=== PATIENT | female | born 2000 | race Caucasian/White ===

== ENCOUNTER 2024-10-03 08:39 | Emergency (ER) | payer MEDICAID ==
[~2024-10-03] VITALS: Ht 160 cm; Wt 46.8 kg
[2024-10-03 09:09] LABS: BASOPHILS % (AUTO) 0.1 % (0.0-2.0); EOSINOPHILS % (AUTO) 1.8 % (1.0-6.0); HEMATOCRIT 40.8 % (36-46); HEMOGLOBIN 13.7 g/dL (12.0-16.0); LYMPHOCYTES # (AUTO) 1.6 K/uL (1.0-4.8); LYMPHOCYTES % (AUTO) 24.7 % (22.0-44.0); MEAN CORPUSCULAR HEMOGLOBIN 31.4 pg (26.0-34.0); MEAN CORPUSCULAR HGB CONC 33.5 G/dL (31.0-37.0); MEAN CORPUSCULAR VOLUME 94 fL (80-100); MONOCYTES # (AUTO) 0.6 K/uL (0.1-1.0); MONOCYTES % (AUTO) 9.8 % (2.0-9.0); NEUTROPHILS # (AUTO) 4.1 K/uL (1.8-7.7); NEUTROPHILS % (AUTO) 63.6 % (40.0-70.0); PLATELET COUNT (AUTO) 174 K/uL (150-450); RED BLOOD CELL COUNT(AUTO) 4.36 MIL/uL (4.00-5.20); RED CELL DISTRIBUTION WIDTH 13.3 % (11.5-14.5); WHITE BLOOD COUNT (AUTO) 6.4 K/uL (4.5-11.0)
[2024-10-03 09:18] LABS: ANION GAP 7 mmol/L (8-16); CALCIUM, TOTAL 9.3 mg/dL (8.8-10.5); CARBON DIOXIDE 29 mmol/L (22-29); CHLORIDE 107 mmol/L (98-107); GLOMERULAR FILTR. RATE CALC > 60 mL/min (>60); GLUCOSE,RANDOM 89 mg/dL (70-110); SODIUM SERUM 143 mmol/L (136-145); UREA NITROGEN, BLOOD 12 mg/dL (7-18)
[2024-10-03] MEDS: CefTRIAXone SODIUM 1 GM/VIAL IM ONE (10:01)
[2024-10-03] MEDS: LIDOCAINE/PF 1% 2 ML VIAL IM ONE (10:01)
[2024-10-03] MEDS: SODIUM CHLORIDE 0.9% 500 ML IV ONE (10:24)
[2024-10-03] MEDS: ONDANSETRON HCL 4 MG/2 ML VIAL IVP ONE (10:24)
[2024-10-03] MEDS: CIPROFLOXACIN HCL 250 MG TABLET PO ONE (10:24)
[2024-10-03] MEDS: DIPHENOXYLATE/ATROP 2.5-0.025 MG TABLET PO ONE (10:36)
[2024-10-03 11:26] VITALS: BP 95/55; PULSE 71; RESP 18; TEMP 98.1; O2SAT 97
== END 2024-10-03 14:37 | disposition home or self-care (01) ==
LOC: EMS 08:41
DX: R19.7 Diarrhea, unspecified (principal); R11.2 Nausea with vomiting, unspecified; Z91.011 Allergy to milk products
CPT/HCPCS: 99283; 96374; 96361; 80048; 85025; 36415; J0696; J3490; J2405; J7040